=== PATIENT | male | born 1960 | race Caucasian/White ===

== ENCOUNTER → 2016-11-09 | Outpatient (CLI) | payer OTHER ==
[~2016-11-09] MED LIST: MAGNESIUM250 M1 PO; PEPCID AC20 MG PO; PERCOCET 7.5-31 EACH PO; POTASSIUM GLUC500 MG PO; TRAMADOL 50 MG50 MG PO
== END ==
LOC: CAT 04:08
DX: M25.572 Pain in left ankle and joints of left foot (principal)